=== PATIENT | female | born 1995 | race Caucasian/White ===

== ENCOUNTER → 2023-04-10 | Outpatient (CLI) | payer OTHER ==
[2023-04-10 13:40] LABS: Glucose 3 Hour, Gest 104 mg/dL
== END | disposition home or self-care (01) ==
LOC: LABWHC1 08:22
PROVIDERS: ATTEND Obstetrics & Gynecology
DX: R73.09 Other abnormal glucose (principal)
CPT/HCPCS: 36415; 82951; 82952

== ENCOUNTER 2023-05-12 00:41 | Outpatient (CLI) | payer OTHER ==
[2023-05-12 01:30] VITALS: BP 129/84; PULSE 109; RESP 16
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
== END 2023-05-12 01:05 | disposition home or self-care (01) ==
LOC: FBPOP 00:41
PROVIDERS: ATTEND Obstetrics & Gynecology
DX: O26.892 Other specified pregnancy related conditions, second trimester (principal); O9A.212 Injury, poisoning and certain other consequences of external causes complicating pregnancy, second trimester; O46.92 Antepartum hemorrhage, unspecified, second trimester; R10.31 Right lower quadrant pain; Z3A.21 21 weeks gestation of pregnancy; V49.9XXA Car occupant (driver) (passenger) injured in unspecified traffic accident, initial encounter; Y92.511 Restaurant or cafe as the place of occurrence of the external cause; Z88.8 Allergy status to other drugs, medicaments and biological substances
CPT/HCPCS: 99213

== ENCOUNTER → 2023-08-21 | Outpatient (CLI) | payer OTHER ==
[2023-08-21 16:29] LABS: Glucose 3 Hour, Gest 118 mg/dL
== END | disposition home or self-care (01) ==
LOC: LABWHC1 08:08
PROVIDERS: ATTEND Obstetrics & Gynecology
DX: O24.419 Gestational diabetes mellitus in pregnancy, unspecified control (principal); Z3A.00 Weeks of gestation of pregnancy not specified
CPT/HCPCS: 36415; 82951; 82952

== ENCOUNTER 2023-09-01 21:22 | Observation (INO) | payer OTHER ==
[2023-09-01] MEDS ORDERED: LACTATED RINGERS 1,000 ML IV SCH (22:00)
[2023-09-01 22:35] LABS: Appearance,Urine Clear (Clear); Bacteria,Urine Rare /hpf; Bilirubin,Urine Negative (Negative); Blood,Urine Negative (Negative); Color,Urine Yellow; Glucose,Urine (UA) Negative (Negative); Ketones,Urine Negative (Negative); Leukocyte Esterase,Urine Negative (Negative); Mucus,Urine Few /hpf; Nitrite,Urine Negative (Negative); Protein,Urine 1+ (Negative); RBC,Urine <1 /hpf (0-5); Specific Gravity,Urine 1.027 (1.001-1.035); Squamous Epithelial Cell,Urine 12 /hpf (0-4); WBC,Urine 1 /hpf (0-5)
[2023-09-01 22:40] LABS: Basophils % (A) 0 %; Eosinophils # (A) 0.1 k/uL (0-0.7); Eosinophils % (A) 1 %; HCT 33.7 % (34.0-46.0); HGB 11.5 gm/dL (11.4-16.0); Lymphocytes # (A) 2.2 k/uL (1.0-4.8); Lymphocytes % (A) 22 %; MCH 31.3 pg (25.0-35.0); MCHC 34.1 g/dL (31.0-37.0); MCV 92.1 fL (80.0-100.0); Mean Platelet Volume 10.4; Monocytes # (A) 0.4 k/uL (0-1.0); Monocytes % (A) 4 %; Neutrophils % (A) 71 %; Platelet Count 207 k/uL (150-450); RBC 3.66 m/uL (3.80-5.40); RDW 13.5 % (11.5-15.5); WBC 9.9 k/uL (3.8-10.6)
[2023-09-01 22:48] LABS: Creatinine,Urine Random 218.7 mg/dL
[2023-09-01 22:51] LABS: ALT 13 U/L (4-34); AST 19 U/L (14-36); African American GFR (CKD) >90 (>60 ml/min/1.73 sqM); Blood Urea Nitrogen 8 mg/dL (7-17); LDH 174 U/L (120-246); Non-African American GFR(CKD) >90 (>60 ml/min/1.73 sqM); Uric Acid 4.8 mg/dL (3.7-7.4)
--- NOTE | 2023-09-01 22:54 | P.HPOB ---
History of Present Illness H&P Date: 09/01/23 Chief Complaint: Possible rupture of membranes This is a 28-year-old 3 para 2001 woman who presents at 37 and one sevenths weeks gestation with possible rupture of membranes. She has care with Dr. Christensen in [place]. She is an estimated due date of 09/21/2022. Upon e valuation in labor and delivery triage testing for rupture of membranes was negative however she was found to have elevated blood pressures initially of 140s to 150s over 90s to 100. The patient does give a history of elevated blood pressure for the first time in the office 1 week ago and did have testing that she reports was negative. She also reports she was monitored for low fluid with an amniotic fluid index of 8 cm. During her the blood draw in triage she felt as if she was going to pass out. The at that time she also had heart rate deceleration down to the 80s to 90 bpm for approximately 8 minutes. Her blood pressure was 119/76 during the episode. IV fluids were started as well as maternal oxygen and heart tones did return to baseline. Prior to this event she had category 1 heart tones with a baseline of 140s and good variability and accelerations. She currently is now complaining of mild headache. Based on the bradycardic event she is admitted for observation and PIH workup. Obstetric history is significant for 2 prior vaginal deliveries in 2015 and 2019 both of which she states her uncomplicated. Surgical history significant for drainage of an abscess in her neck. Denies any other past medical history specifically no chronic hypertension, heart disease, diabetes, thyroid disorder. Review of Systems Constitutional: Denies chills, Denies chronic headaches, Denies fever Cardiovascular: Denies chest pain, Denies edema, Denies high blood pressure, Denies palpitations, Denies rapid heart beat, Denies shortness of breath Respiratory: Denies cough Gastrointestinal: Denies constipation, Denies diarrhea, Denies nausea, Denies vomiting Genitourinary: Denies abnormal vaginal bleeding, Denies vaginal discharge Neurological: Reports headaches Past Medical History Past Medical History: No Reported History History of Any Multi-Drug Resistant Organisms: None Reported Additional Past Surgical History / Comment(s): Drainage of neck abscess Past Psychological History: No Psychological Hx Reported Smoking Status: Never smoker Past Drug Use History: None Reported Medications and Allergies Home Medications Medication Instructions Recorded Confirmed Type Vit No.179/Iron/Folic 1 tablet PO DAILY 05/12/23 09/01/23 History [ Tablet] Allergies Allergy/AdvReac Type Severity Reaction Status Date / Time iodine Allergy Rash/Hives Verified 09/01/23 21:25 Exam Intake and Output 09/01/23 09/01/23 09/01/23 06:59 14:59 22:59 Other: Weight 99.337 kg This is a pleasant, visibly gravid female in no acute distress. HEENT exam unremarkable. Her breathing is is a regular rate and rhythm. The abdomen is obese gravid and nontender. Pelvic examination cervix is 1 cm dilated 50% effaced and presenting part in the -3 station. Amnio sure testing is negative per RN. She has 1+ bilateral lower extremity edema. heart tones are currently category 2 secondary to recent bradycardic event. Prior to that they were category 1. She is very irregularly tonio. Results Result Diagrams: 09/01/23 22:23 Abnormal Lab Results - Last 24 Hours (Table) 09/01/23 09/01/23 Range/Units 21:22 22:23 RBC 3.66 L (3.80-5.40) m/uL Hct 33.7 L (34.0-46.0) % Urine Protein 1+ H (Negative) Ur Squamous Epith Cells 12 H (0-4) /hpf Urine Bacteria Rare H (None) /hpf Urine Mucus Few H (None) /hpf Assessment and Plan (1) 37 weeks gestation of Current Visit: Yes Status: Acute Code(s): Z3A.37 - 37 WEEKS GESTATION OF SNOMED Code(s): 26270347 (2) bradycardia Current Visit: Yes Status: Acute Code(s): UML7730 - SNOMED Code(s): 752516110 (3) Gestational hypertension Current Visit: Yes Status: Acute Code(s): O13.9 - GESTATIONAL HTN W/O SIGNIFICANT PROTEINURIA, UNSP TRIMESTER SNOMED Code(s): 54978841 Plan: 28-year-old 3 para 20 02 woman admitted for observation at 37 and one sevenths weeks gestation. Believe she had a vasovagal event with transient hypotension at the time of her blood drawn which led to the bradycardic event. heart tones are currently back to baseline and reassuring. She is not in active labor and she does not have rupture of membranes. She is to be admitted overnight for continuous monitoring. PIH labs are pending at this time. If all signs are reassuring overnight she can be discharged to routine [facility] tomorrow. Time with Patient: Greater than 30
[2023-09-01] MEDS ORDERED: ACETAMINOPHEN TAB 325 MG TAB PO PRN (22:57)
[2023-09-01] MEDS: LACTATED RINGERS 1,000 ML IV SCH (23:25)
[2023-09-01] MEDS ORDERED: ACETAMINOPHEN ORAL SUSP 160 MG/5 ML CUP PO ONE (23:30)
[2023-09-02] MEDS: LACTATED RINGERS 1,000 ML IV SCH (06:15)
[2023-09-02 06:59] VITALS: BP 129/74; PULSE 95; RESP 15; TEMP 97.2
--- NOTE | 2023-09-02 09:42 | P.PN ---
Subjective Progress Note Date: 09/02/23 Principal diagnosis: Category 2 heart tones Continuous monitoring overnight was reassuring with category 1 heart tones throughout. Her blood pressures remained normal throughout the night. She slept soundly. Headache resolved with Tylenol 1 Objective - Vital Signs Vital signs: Vital Signs Temp 97.2 F L 09/02/23 06:46 Pulse 95 09/02/23 06:46 Resp 15 09/02/23 06:46 BP 129/74 09/02/23 06:46 Pulse Ox 99 09/02/23 06:46 FiO2 Intake & Output 09/01/23 09/02/23 09/02/23 18:59 06:59 18:59 Weight 99.337 kg Other: # Voids 5 - Constitutional General appearance: Present: average body habitus, cooperative - Gastrointestinal Gastrointestinal Comment(s): Abdomen gravid, soft and nontender - Neurologic Neurologic Comment(s): Deep tendon reflexes 2+ Neurologic: Absent: focal deficits - Labs CBC & Chem 7: 09/01/23 22:23 09/01/23 22:23 Labs: Abnormal Lab Results - Last 24 Hours (Table) 09/01/23 09/01/23 Range/Units 21:22 22:23 RBC 3.66 L (3.80-5.40) m/uL Hct 33.7 L (34.0-46.0) % Urine Protein 1+ H (Negative) Ur Squamous Epith Cells 12 H (0-4) /hpf Urine Bacteria Rare H (None) /hpf Urine Mucus Few H (None) /hpf Assessment and Plan (1) 37 weeks gestation of Current Visit: Yes Status: Acute Code(s): Z3A.37 - 37 WEEKS GESTATION OF SNOMED Code(s): 22239553 (2) bradycardia Current Visit: Yes Status: Acute Code(s): YEG7478 - SNOMED Code(s): 903944445 (3) Gestational hypertension Current Visit: Yes Status: Acute Code(s): O13.9 - GESTATIONAL HTN W/O SIGNIFICANT PROTEINURIA, UNSP TRIMESTER SNOMED Code(s): 85628726 Plan: 28-year-old 3 para 20 02 woman admitted for observation at 37 and one sevenths weeks gestation. Believe she had a vasovagal event with transient hypotension at the time of her blood drawn which led to the bradycardic event. heart tones are currently back to baseline and reassuring. She is not in active labor and she does not have rupture of membranes. She is to be admitted overnight for continuous monitoring. [facility] labs are pending at this time. If all signs are reassuring overnight she can be discharged to routine [facility] tomorrow. 09/02/2023: Continuous monitoring overnight was category 1. Normal blood pressures. Discharged home with instructions for follow-up with regular commodities clerk this week. Time with Patient: Less than 30
[2023-09-02 10:40] LABS: Urine Alcohol Negative (Negative); Urine Barbiturate Negative (Negative); Urine Cocaine Negative (Negative); Urine Methadone Negative (Negative); Urine Opiates Negative (Negative); Urine Phencyclidine Negative (Negative)
== END 2023-09-02 10:02 | disposition home or self-care (01) ==
LOC: FBPOP 21:22 → INTOOBSV 22:43 → 4FBP 22:43 → UNDODISIN 09-02 10:02
PROVIDERS: ADMIT Obstetrics & Gynecology; ATTEND Obstetrics & Gynecology
DX: O41.93X0 Disorder of amniotic fluid and membranes, unspecified, third trimester, not applicable or unspecified (principal); O12.14 Gestational proteinuria, complicating childbirth; O13.4 Gestational [pregnancy-induced] hypertension without significant proteinuria, complicating childbirth; O76 Abnormality in fetal heart rate and rhythm complicating labor and delivery; Z3A.37 37 weeks gestation of pregnancy; Z37.0 Single live birth
CPT/HCPCS: 59025; 96360; 96361; 96365; 84112; 36415; 99283; 86900; 86901; 82570; 84156; 82565; 83615; 84450; 84460; 84520; 84550; 85025; 86850; 81001; 80306; G0378 ×2; G0463 ×2; 99213; 99215

== ENCOUNTER 2023-09-15 03:08 | Inpatient (IN) | payer OTHER ==
[2023-09-15] MEDS ORDERED: CARBOPROST TROMETHAMINE 250 MCG/ML 1 ML AMP IM PRN (04:35)
[2023-09-15] MEDS ORDERED: miSOPROStoL 200 MCG TAB PO PRN (04:35)
[2023-09-15] MEDS ORDERED: METHYLERGONOVINE 0.2 MG/ML 1 ML AMP IM PRN (04:35)
[2023-09-15] MEDS ORDERED: OXYTOCIN 10 UNIT/ML 1 ML VIAL IM PRN (04:35)
[2023-09-15] MEDS ORDERED: LIDOCAINE 0.5% (PF) 5 MG/ML (50 ML SDV) SQ PRN (04:35)
[2023-09-15] MEDS ORDERED: TERBUTALINE 1 MG/ML VIAL SQ PRN (04:35)
[2023-09-15] MEDS ORDERED: TRANEXAMIC 1,000 MG/100ML-NACL 1,000 MG in EMPTY BAG 1 BAG IV PRN (04:35)
[2023-09-15 04:43] LABS: Basophils % (A) 0 %; Eosinophils # (A) 0.1 k/uL (0-0.7); Eosinophils % (A) 1 %; HCT 35.2 % (34.0-46.0); HGB 11.9 gm/dL (11.4-16.0); Lymphocytes # (A) 2.7 k/uL (1.0-4.8); Lymphocytes % (A) 24 %; MCH 30.7 pg (25.0-35.0); MCHC 33.7 g/dL (31.0-37.0); MCV 91.1 fL (80.0-100.0); Mean Platelet Volume 10.4; Monocytes # (A) 0.5 k/uL (0-1.0); Monocytes % (A) 4 %; Neutrophils # (A) 7.7 k/uL (1.3-7.7); Neutrophils % (A) 69 %; Platelet Count 213 k/uL (150-450); RBC 3.87 m/uL (3.80-5.40); RDW 13.9 % (11.5-15.5); WBC 11.2 k/uL (3.8-10.6)
[2023-09-15] MEDS ORDERED: OXYTOCIN 30 UNITS/500 ML NS 30 UNIT in SALINE 1 500ML.BAG IV SCH ×2 (04:45→08:15)
[2023-09-15] MEDS ORDERED: LACTATED RINGERS 1,000 ML IV SCH (04:45)
[2023-09-15 04:50] LABS: Appearance,Urine Clear (Clear); Bilirubin,Urine Negative (Negative); Blood,Urine Negative (Negative); Color,Urine Yellow; Glucose,Urine (UA) Negative (Negative); Ketones,Urine Negative (Negative); Leukocyte Esterase,Urine Negative (Negative); Nitrite,Urine Negative (Negative); Protein,Urine Trace (Negative); Specific Gravity,Urine 1.021 (1.001-1.035); Urobilinogen,Urine <2.0 mg/dL (<2.0)
[2023-09-15 04:53] LABS: ALT 12 U/L (4-34); AST 20 U/L (14-36); African American GFR (CKD) >90 (>60 ml/min/1.73 sqM); Blood Urea Nitrogen 6 mg/dL (7-17); Glucose 77 mg/dL (74-99); LDH 214 U/L (120-246); Non-African American GFR(CKD) >90 (>60 ml/min/1.73 sqM); Uric Acid 4.4 mg/dL (3.7-7.4)
[2023-09-15] MEDS ORDERED: PENICILLIN G POTASSIUM 5,000,000 UNIT in DEXTROSE 5% IN WATER 100 ML IVPB ONE ×2 (05:00)
[2023-09-15 05:04] VITALS: RESP 16
[2023-09-15 05:06] LABS: Creatinine,Urine Random 122.4 mg/dL; Protein/Creatinine Ratio,Urine 0.09
[2023-09-15 05:20] LABS: Amphetamine Screen,Urine Not Detected (NotDetected); Barbiturate Screen,Urine Not Detected (NotDetected); Benzodiazepines Screen,Urine Not Detected (NotDetected); Cocaine Screen,Urine Not Detected (NotDetected); Methadone Screen, Urine Not Detected (NotDetected); Opiate Screen,Urine Not Detected (NotDetected); Oxycodone Screen, Urine Not Detected (NotDetected); Phencyclidine Screen,Urine Not Detected (NotDetected); Tricyclic Antidepressant,Urine Not Detected (NotDetected); Urn Cannabinoid Scrn Not Detected (NotDetected)
--- NOTE | 2023-09-15 06:05 | P.HPOB ---
History of Present Illness H&P Date: 09/15/23 Chief Complaint: 40 and one sevenths weeks, labor, no local care The patient is a 28-year-old 3 para 2 scissors or 2 who presents the hospital with no local care having had care at another doctor's office in [facility]. She presents in early active labor with all signs reassuring, category 1 heart rate tracing. Her has reportedly been uncomplicated though we have no records. She was scheduled for an induction tomorrow but presented here as noted above in early labor and made change in triage while under observation. She reports that her has been uncomplicated though she is known to be group B strep positive by her report. Obstetrical history: 3 para 2001 with 2 term vaginal deliveries without complications. Current statistics are listed in history present illness. EDC of 09/14/2023 was established by unknown dating parameters as we have no record. Laboratory workup since presentation demonstrates her blood type to be a positive and the remainder of the laboratory workup was essentially pending. Gynecologic history: Reportedly unremarkable with no history of any infections to include STDs. Past Medical History Past Medical History: No Reported History History of Any Multi-Drug Resistant Organisms: None Reported Past Surgical History: No Surgical Hx Reported Additional Past Surgical History / Comment(s): Drainage of neck abscess Past Anesthesia/Blood Transfusion Reactions: No Reported Reaction Past Psychological History: No Psychological Hx Reported Smoking Status: Never smoker Past Alcohol Use History: None Reported Past Drug Use History: None Reported Medications and Allergies Home Medications Medication Instructions Recorded Confirmed Type Vit No.179/Iron/Folic 1 tablet PO DAILY 05/12/23 09/15/23 History [ Tablet] Allergies Allergy/AdvReac Type Severity Reaction Status Date / Time iodine Allergy Rash/Hives Verified 09/15/23 03:11 Exam Vital Signs Temp Pulse Resp BP Pulse Ox 09/15/23 04:35 98.7 F 120 H 16 140/93 100 Intake and Output 09/14/23 09/14/23 09/15/23 14:59 22:59 06:59 Other: Weight 99.79 kg General, this is a well-developed, well-nourished white female in no acute di stress. Her heart has regular rhythm and rate without murmur. Her lungs clear to auscultation bilaterally in all calderon. Her abdomen is nondistended, has normal active bowel sounds, soft, nontender, without any palpable masses aside from uterine fundus. Her extremities are without any cyanosis, clubbing, or edema and nontender to palpation bilaterally. Digital cervical examination performed by the nursing staff demonstrates her cervix to be 8 cm dilated, 90% effaced, the vertex in presentation at -2 station. Results Result Diagrams: 09/15/23 04:01 09/15/23 03:45 Abnormal Lab Results - Last 24 Hours (Table) 09/15/23 09/15/23 09/15/23 Range/Units 03:45 03:45 04:01 WBC 11.2 H (3.8-10.6) k/uL BUN 6 L (7-17) mg/dL Creatinine 0.49 L (0.52-1.04) mg/dL Urine Protein Trace H (Negative) Assessment and Plan (1) Active labor at term Current Visit: Yes Status: Acute Code(s): KHC1437 - SNOMED Code(s): 35538777 Plan: The patient is admitted for active management of labor. She has had an epidural catheter placed for analgesia. She will continue to have close maternal and surveillance and expectant management will be practiced. She will require a social media coordinator consult as she has had no local care though she has care elsewhere. I would anticipate normal spontaneous vaginal delivery in the near future.
[2023-09-15] MEDS ORDERED: ZOLPIDEM 5 MG TAB PO PRN (08:05)
[2023-09-15] MEDS ORDERED: IBUPROFEN 600 MG TAB PO PRN (08:05)
[2023-09-15] MEDS ORDERED: diphenhydrAMINE 50 MG/ML 1 ML VIAL IVP PRN ×2 (08:05)
[2023-09-15] MEDS ORDERED: diphenhydrAMINE 25 MG CAP PO PRN (08:05)
[2023-09-15] MEDS ORDERED: HYDROcodone/APAP 5-325MG 1 EACH TAB PO PRN (08:05)
[2023-09-15] MEDS ORDERED: HYDROCORTISONE 2.5% RECTAL CREAM 30 GM TUBE RECTAL PRN (08:05)
[2023-09-15] MEDS ORDERED: BENZOCAINE/MENTHOL SPRAY 1 GM/SPRAY AEROSOL TOPICAL PRN (08:05)
[2023-09-15] MEDS ORDERED: ACETAMINOPHEN TAB 325 MG TAB PO PRN (08:05)
[2023-09-15] MEDS ORDERED: SIMETHICONE 80 MG CHEWABLE PO PRN (08:05)
[2023-09-15] MEDS ORDERED: diphenhydrAMINE 50 MG CAP PO PRN (08:05)
[2023-09-15] MEDS ORDERED: HYDROcodone/APAP 7.5-325MG 1 EACH TAB PO PRN (08:05)
--- NOTE | 2023-09-15 08:12 | P.PROBDLV ---
Vaginal Delivery Note - . Vaginal Delivery Note: The patient is a 28-year-old 3 para 2 scissors or 2 admitted at 39 and one sevenths weeks by dating parameters established elsewhere. She is admitted in active labor with all signs reassuring. She apparently has had care at another site but no local care. Her reportedly has been uncomplicated though she reports that she has had oligohydramnios and was scheduled for an induction tomorrow. She does report that group B strep status is positive. On labor and delivery, all signs were reassuring with a category 1 heart rate tracing. She had antibiotic prophylaxis started for group B strep was making fairly rapid progress and therefore had artificial rupture of membranes carried out demonstrating what appeared to be clear fluid. Upper catheter had been placed for analgesia shortly after admission. She progressed fairly quickly through the active phase of labor to complete but with a high station at -3. heart tones had turned to category 2 with initially a number of variable decelerations which responded to interventions but returned to a very high baseline in the 180s to 190s. As the patient was complete, I had her push and she pushed the baby down fairly quickly from the high station to a normal spontaneous vaginal delivery over the course of approximately 5 minutes. She was delivered of a viable 9 lbs. 11 oz. baby boy with Apgars of 7 at 1 minute and 9 at 5 minutes delivered in the left occiput anterior position. There was a mild shoulder dystocia which was rectified with Cassi maneuver alone. The placenta was delivered spontaneously, intact, and grossly normal with a grossly normal three-vessel cord though there was meconium staining of the placenta and membranes. She was then found with a second-degree midline perineal laceration which was repaired in standard fashion using 3-0 chromic catgut without difficulty. Estimated blood loss for the case is approximately 200 mL. There were no complications. All sponge, instrument, needle counts were correct. Both mother and are resting comfortably in recovery of the has been taken the special care nursery for evaluation secondary to some difficulty initially with respiration.
[2023-09-15] MEDS ORDERED: PENICILLIN G POTASSIUM 2,500,000 UNIT in DEXTROSE 5% IN WATER 100 ML IVPB SCH ×2 (09:00)
[2023-09-15] MEDS ORDERED: ACETAMINOPHEN ORAL SUSP 160 MG/5 ML CUP PO PRN (09:15)
[2023-09-15] MEDS: IBUPROFEN ORAL SUSP 100 MG/5 ML CUP PO PRN ×2 (09:44→19:35)
[2023-09-15 11:12] LABS: Hepatitis B Surface Antigen Nonreactive
[2023-09-15] MEDS: SENNOSIDES-DOCUSATE SODIUM 1 EACH TAB PO SCH (20:28)
[2023-09-16] MEDS ORDERED: ACETAMINOPHEN ORAL SUSP (PEDS) 3,840 MG/120 ML BOTTLE PO STA (05:26)
[2023-09-16] MEDS ORDERED: ACETAMINOPHEN ORAL SUSP 160 MG/5 ML CUP PO PRN (05:30)
[2023-09-16] MEDS: ACETAMINOPHEN ORAL SUSP (PEDS) 3,840 MG/120 ML BOTTLE PO PRN (05:31)
--- NOTE | 2023-09-16 06:13 | P.PNOBGVD ---
Subjective - Subjective Patient reports: Reports appetite normal, Reports voiding normally, Reports pain well controlled, Reports ambulating normally : doing well, in NICU (Some respiratory difficulties and elevated white count come requiring antibiotic prophylaxis) Objective - Latest Vital Signs Latest vital signs: Vital Signs Temp Pulse Resp BP 09/16/23 00:00 98.7 F 77 16 134/87 09/15/23 20:00 98.0 F 77 16 139/94 09/15/23 16:00 98.2 F 78 16 126/72 09/15/23 12:00 98.4 F 95 16 128/74 09/15/23 09:50 98.4 F 102 H 16 147/91 09/15/23 09:20 100 16 139/90 09/15/23 08:50 100 16 133/89 09/15/23 08:35 112 H 16 130/77 09/15/23 08:20 113 H 16 135/80 09/15/23 08:05 113 H 16 135/81 09/15/23 07:50 98 F 122 H 16 137/80 Intake and Output 09/15/23 09/15/23 09/16/23 14:59 22:59 06:59 Output Total 442 Balance -442 Output: Output, Quantitative 442 Blood Loss Other: # Voids 1 1 1 - Exam Extremities: Present: normal Abdomen: Present: normal appearance, soft Uterus: Present: normal, firm (Uterine fundus is tonic and minimally tender below the umbilicus.) - Labs Labs: Abnormal Lab Results - Last 24 Hours (Table) 09/15/23 Range/Units 04:01 Rubella IgG Antibody 19.90 H (0.00-9.00) IU/mL Assessment and Plan (1) Active labor at term Current Visit: Yes Status: Acute Code(s): NCQ1328 - SNOMED Code(s): 43033117 (2) Normal spontaneous vaginal delivery Current Visit: Yes Status: Acute Code(s): O80 - ENCOUNTER FOR FULL-TERM UNCOMPLICATED DELIVERY SNOMED Code(s): 52187517 Plan: Elin routine care. I would anticipate discharge home tomorrow pending no maternal complications.
[2023-09-16 07:20] LABS: Basophils % (A) 0 %; Eosinophils # (A) 0.1 k/uL (0-0.7); Eosinophils % (A) 1 %; HCT 29.8 % (34.0-46.0); Lymphocytes % (A) 28 %; MCH 31.4 pg (25.0-35.0); MCHC 33.7 g/dL (31.0-37.0); MCV 93.3 fL (80.0-100.0); Mean Platelet Volume 10.3; Monocytes # (A) 0.4 k/uL (0-1.0); Monocytes % (A) 4 %; Neutrophils # (A) 7.1 k/uL (1.3-7.7); Neutrophils % (A) 66 %; Platelet Count 155 k/uL (150-450); RBC 3.19 m/uL (3.80-5.40); RDW 14.1 % (11.5-15.5); WBC 10.8 k/uL (3.8-10.6)
[2023-09-16] MEDS: SENNOSIDES-DOCUSATE SODIUM 1 EACH TAB PO SCH (08:54)
[2023-09-16 13:59] LABS: C. trachomatis,PCR Negative (Negative)
[2023-09-16 14:09] LABS: N. gonorrhoeae,PCR Negative (Negative)
[2023-09-16 14:57] LABS: HIV 2 AB Non-Reactive (Non-Reactive); HIV AB P24 Non-Reactive (Non-Reactive); HIV P24 AG Non-Reactive (Non-Reactive)
[2023-09-16] MEDS: IBUPROFEN ORAL SUSP 100 MG/5 ML CUP PO PRN (22:26)
[2023-09-17] MEDS: SENNOSIDES-DOCUSATE SODIUM 1 EACH TAB PO SCH ×2 (02:34→08:52)
[2023-09-17] MEDS: ACETAMINOPHEN ORAL SUSP (PEDS) 3,840 MG/120 ML BOTTLE PO PRN ×3 (02:44→18:59)
--- NOTE | 2023-09-17 08:47 | P.DS ---
Providers Date of admission: 09/15/23 04:21 Expected date of discharge: 09/17/23 Attending physician: Ton Hurley Primary care physician: Stated None - Discharge Diagnosis(es) (1) Active labor at term Current Visit: Yes Status: Acute (2) Normal spontaneous vaginal delivery Current Visit: Yes Status: Acute Hospital Course: The patient is a 28-year-old 3 para 2001 admitted at 39+ weeks based upon dating parameters determined elsewhere. She has had no local care but has had care at another doctor's office in [place]. She presents in early active labor with all signs reassuring, category 1 heart rate tracing. She reports her has been uncomplicated though we have no records. She had been scheduled for induction of the day after presentation to our hospital but made change in our triage unit and was admitted for labor. Group B strep status is reportedly positive. As result, she had antibiotic prophylaxis started she is progressing quickly and, as a result, had artificial rupture of membranes carried out to expedite delivery demonstrating clear fluid. She ultimately made progress to complete with a high station but then pushed the head from a -3 station to in less than 5 minutes. She delivered a viable 9 lbs. 11 oz. baby boy with Apgars of 7 at 1 minute and 9 at 5 minutes. There was a mild shoulder dystocia which was reduced with Cassi maneuver only. Her course was unremarkable vital signs remained stable and her temperature was afebrile throughout. Her did remain in the nursery secondary to some respiratory issues for prophylactic antibiotics. The patient was deemed stable for discharge on day #2 and was discharged home to follow-up in the office or her primary metallographer's office in 6 weeks' time routinely. Discharge instructions included calling for any significantly increased bleeding or foul-smelling lochia, significantly increased fever or abdominal pain, perineal complaints, breast complaints, or anything also concerned her. She is additionally instructed to have nothing in the vagina for at least 6 weeks time to include intercourse. She understood her instructions and agrees to follow up as noted above. Discharge medications included only coeu-iin-mogulaw analgesic pain medications. Maternal blood type is A+ and rubella status is immune. Procedures: #1. Antibiotic prophylaxis #2. Epidural analgesia #3. Artificial rupture of membranes #4. Normal spontaneous vaginal delivery #5. Repair of perineal laceration Patient Condition at Discharge: Stable Plan - Discharge Summary New Discharge Prescriptions: No Action Vit No.179/Iron/Folic [ Tablet] 1 tablet PO DAILY Discharge Medication List Vit No.179/Iron/Folic [ Tablet] 1 tablet PO DAILY 05/12/23 [History] Follow up Appointment(s)/Referral(s): Ton Hurley MD [STAFF PHYSICIAN] - 6 Weeks Discharge Disposition: HOME SELF-CARE
[2023-09-17 16:17] VITALS: BP 137/92; PULSE 79; TEMP 97.8
== END 2023-09-17 19:06 | disposition home or self-care (01) | DRG 560 ==
LOC: FBPOP 03:08 → 4FBP 04:21
PROVIDERS: ADMIT Obstetrics & Gynecology; ATTEND Obstetrics & Gynecology
PROC: 0KQM0ZZ Repair Perineum Muscle, Open Approach (ICD-10-PCS; principal; 2023-09-15)
PROC: 10907ZC Drainage of Amniotic Fluid, Therapeutic from Products of Conception, Via Natural or Artificial Opening (ICD-10-PCS; principal; 2023-09-15)
PROC: 10E0XZZ Delivery of Products of Conception, External Approach (ICD-10-PCS; principal; 2023-09-15)
DX: O99.824 Streptococcus B carrier state complicating childbirth (principal); O77.0 Labor and delivery complicated by meconium in amniotic fluid; O76 Abnormality in fetal heart rate and rhythm complicating labor and delivery; O70.1 Second degree perineal laceration during delivery; O66.0 Obstructed labor due to shoulder dystocia; Z37.0 Single live birth; Z3A.39 39 weeks gestation of pregnancy; O41.03X0 Oligohydramnios, third trimester, not applicable or unspecified
CPT/HCPCS: 59025; 80306; 81003; 82565; 82570; 82947; 83615; 84156; 84450; 84460; 84520; 84550; 85025; 86762; 86780; 86850; 86900; 86901; 87340; 87390; 87491; 87591; 88307; 99213